=== PATIENT | male | born 1990 | race Caucasian/White ===

== ENCOUNTER 2020-05-30 00:18 | Emergency (ER) | payer SELFPAY ==
[~2020-05-30] VITALS: Ht 167.6 cm; Wt 103.9 kg
[2020-05-30 00:39] VITALS: BP 152/92
--- NOTE | 2020-05-30 01:59 | NUR ---
PT EVALUATED, TREATED, AND D/C BY ERMD. NO NURSING INTERVENTIONS NEEDED.
--- NOTE | 2020-05-30 02:00 | NUR ---
Patient discharged with v/s stable. Written and verbal after care instructions given and explained. Patient verbalized understanding. Ambulatory with steady gait. All questions addressed prior to discharge. Advised to follow up with PMD.
[2020-05-30 02:04] VITALS: BP 152/92
== END 2020-05-30 02:00 | disposition home or self-care (01) ==
LOC: MED 00:18
DX: T16.2XXA Foreign body in left ear, initial encounter (principal); X58.XXXA Exposure to other specified factors, initial encounter
CPT/HCPCS: 69200; 99284